=== PATIENT | male | born 1995 | race Two or more races ===

== ENCOUNTER 2022-08-09 15:27 | Inpatient (IN) | payer OTHER, SELFPAY ==
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
[2022-08-09 20:05] VITALS: BP 154/96; PULSE 110; RESP 18; TEMP 36.9; O2SAT 98
[2022-08-10 09:00] VITALS: BP 135/60; PULSE 90; RESP 20; TEMP 36.9; O2SAT 95
[2022-08-10 09:09] LABS: Alanine Aminotransferase 90 U/L (0-40); Albumin Level 4.3 g/dL (3.5-5.0); Alkaline Phosphatase 94 U/L (39-117); Anion Gap 14 (12-20); Aspartate Amino Transferase 59 U/L (5-37); Bilirubin Total 0.9 mg/dL (0.0-1.0); Blood Urea Nitrogen 12 mg/dL (9-16); Calcium 9.2 mg/dL (8.4-10.2); Carbon Dioxide 25 mmol/L (22-29); Chloride 103 mmol/L (96-108); Cholesterol 199 mg/dL; Estimated Glomerular Filt Rate > 60; Glucose Fasting 120 mg/dL (60-99); HDL Cholesterol 29 mg/dL; LDL Cholesterol Calculated 154 mg/dl; Potassium 3.9 mmol/L (3.3-5.1); Sodium 138 mmol/L (135-145); Total Protein 7.6 g/dL (6.5-8.0); Triglycerides 82 mg/dL
[2022-08-10 09:42] LABS: Folate 10.9 ng/mL (> or = 4.0); Vitamin B12 268 pg/mL (200-900)
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
--- NOTE | 2022-08-10 15:28 | PC.NURSE ---
Patient is alert, responding appropriately to questions. Patient denies SI/HI, denies AH/VH. Denies any concerns, has no belongings other than what he is wearing. Patient reports he feels ready to go and is eager to be discharged. Patient discharged to care of sister.
== END 2022-08-10 15:23 | disposition home or self-care (01) | DRG 885 ==
PROVIDERS: Psychiatry & Neurology Psychiatry; Admitting Provider Psychiatry & Neurology Psychiatry; Visit Provider Psychiatry & Neurology Psychiatry
DX: F29 Unspecified psychosis not due to a substance or known physiological condition (principal)
CPT/HCPCS: 36415; 80053; 80061; 82607; 82746; 84443